=== PATIENT | male | born 2000 | race Caucasian/White ===

== ENCOUNTER 2018-11-11 12:02 | Emergency (ER) | payer MEDICAID ==
[~2018-11-11] VITALS: Ht 165.1 cm; Wt 70.0 kg
[2018-11-11 12:10] VITALS: BP 153/93; PULSE 86; RESP 18; Ht 165.1 cm; Wt 70.0 kg
[2018-11-11] MEDS ORDERED: HYDROCODONE/APAP (5/325) TAB PO ONE (13:00)
[2018-11-11] MEDS ORDERED: HYDR-4011 PO (13:03)
--- NOTE | 2018-11-11 13:13 | ERD ---
ER Documentation Chief Complaint Chief Complaint right upper lip lac HPI This is a 18-year-old male with a nonsignificant past medical history presents ED with complaints of left upper inner lip laceration that occurred just prior to arrival in ED. Patient states that he was at work and was using a drill, the drill got stuck in the wall and when he went to pull it out of the wall the drill struck him in the right upper lip. Patient admits to some mild bleeding coming from the laceration inside his mouth. Admits to some abrasions along upper lip. admits to mild headache that is been gradual in onset not the worst headache of his life. Denies loss of consciousness with this event, blurry v ision, changes in vision, lightheadedness, dizziness, confusion, loose teeth, facial pain, nausea or vomiting postevent and other symptoms. ROS All systems reviewed and are negative except as per history of present illness. Medications Home Meds Active Scripts Hydrocodone/Acetaminophen ([place] 5-325 Tablet) 1 Each Tablet, 1 TAB PO Q6H PRN for PAIN, #7 TAB Prov:JESSI PALOMO PA-C 11/11/18 FmHx Family History: No diabetes Physical Exam Vitals Vital Signs Date Temp Pulse Resp B/P (MAP) Pulse Ox O2 O2 Flow FiO2 Time Delivery Rate 11/11/18 98.7 86 18 153/93 99 12:10 (113) Physical Exam Const: No acute distress Head: Atraumatic, abrasion on patient's right upper lip,, Eyes: Normal Conjunctiva, no periorbital ecchymosis, PERRLA, EOMs intact bilaterally x6 ENT: Normal External Ears, Nose and Mouth. There is a 1 cm laceration on the inside of patient's right upper lip, mild bleeding, no flap or gaping wound, no loose teeth, teeth are nontender to percussion, palpation of maxilla and orbit does not elicit pain, no blood in posterior oropharynx, no hemotympanum, no mastoid tenderness or mastoid ecchymosis Neck: Full range of motion. No meningismus. Resp: Clear to auscultation bilaterally Cardio: Regular rate and rhythm, no murmurs Skin: No petechiae or rashes, abrasion on patient's above right upper lip, no laceration on skin of face Ext: No cyanosis, or edema Neur: Awake and alert Psych: Normal Mood and Affect Results 24 hrs Current Medications Medications Dose Sig/Saad Start Time Status Last (Trade) Ordered Route PRN Stop Time Admin Dose Reason Admin 1 tab ONCE ONCE 11/11/18 DC Acetaminophen PO 13:00 11/11/18 / 13:01 Hydrocodone Bitart ([place] (5/325)) Procedures/MDM PROCEDURES: Wound care provided in ED ER COURSE: The patient was given [place] for pain The medication was well tolerated and the patient reports improvement in symptoms. The patient was stable throughout ED course. I kept the patient and/or family informed of laboratory and diagnostic imaging results throughout the emergency room course. The patient was promptly evaluated and a treatment plan was devised based on H&P and other data. This plan was discussed with the patient who agreed and had no further questions or concerns prior to discharge. MEDICAL DECISION MAKIN-year-old male presents ED with right upper inner lip laceration and facial abrasion after being struck by drill earlier this morning. The lip laceration is not gaping and does not have a flap and does not require sutures. There are some abrasions on patient's face in addition to the lip laceration. Wound care was provided in the ED. I discussed with patient how to care for lip laceration. per the [place] head CT rule it is unnecessary to CT for head trauma. Patient is showing no signs of subarachnoid hemorrhage, intracranial hemorrhage, epidural hematoma, subdural hematoma, midline shift, basilar skull fracture, orbital fracture, facial fracture among others. Patient's vitals are stable and pt can be managed with close out patient follow up. Advised patient to return to ED or to be seen by primary care for a 48 hour wound check. Return to ED with any worsening symptoms and if patient starts experiencing fever, chills, purulent drainage, warmth, swelling at laceration site this may be indications that wound has become infected and patient may need antibiotics. DISPOSITION PLAN: We discussed follow up with the patient's primary care doctor within 24 to 48 hours. Patient counseled regarding my diagnostic impression and care plan. Prior to discharge all questions answered. Pt agrees with treatment plan and understands strict return precautions. Precautionary instructions provided including instructions to return to the ER if not improving or for any worsening or changing symptoms or concerns. SPECIALIST FOLLOW UP RECOMMENDED: None Patient has been advised to follow up with primary care in 1-2 days. Disclaimer: Inadvertent spelling and grammatical errors are likely due to EHR/dictation software use and do not reflect on the overall quality of patient care. Also, please note that the electronic time recorded on this note does not necessarily reflect the actual time of the patient encounter. Blood Pressure Assessment: Patient's blood pressure was elevated (>120/80) but appears stable without evidence of hypertension emergency or urgency. The patient was counseled about the risks of hypertension and urged to pursue outpatient monitoring and therapy within a week with their primary care physician. Departure Diagnosis: Primary Impression: Lip laceration Encounter type: initial encounter Qualified Codes: S01.511A - Laceration without foreign body of lip, initial encounter Additional Impression: Facial abrasion Encounter type: initial encounter Qualified Codes: S00.81XA - Abrasion of other part of head, initial encounter Condition: Stable Patient Instructions: Laceration, Lip/Mouth Ref[facility]: [facility] Usted se escobar hecho un examen mdico de control que le indica que no est en isak condicin que requiera tratamiento urgente en el Departamento de Emergencia. Un estudio ms profundo y el tratamiento de power condicin pueden esperar sin ningn riesgo hasta que usted sea atendida/o en el consultorio de power mdico o isak clnica. Es responsabilidad suya arreglar isak celine para el seguimiento del everardo. MANEJO DE CONDICIONES NO URGENTES EN EL FUTURO 1) Si usted tiene un mdico de atencin primaria: Usted debera llamar a power mdico de atencin primaria antes de venir al dep artamento de emergencia. Despus de las horas de consultorio, power doctor o power asociado/a est disponible por telfono. El mdico o enfermero de love en el servicio telefnico puede asesorarle por camacho medio para atender el problema, o everardo contrario se puede programar isak celine. 2) Si usted no tiene un mdico de atencin primaria: Llame al mdico o clnica de referencia que aparece abajo mary las horas de consultorio para hacer isak celine para que le vean. CLINICAS: [facility] [id number] [facility] [phone] [facility] [phone] [place] [address] [phone] [place] [address] [phone] [facility] [phone] [address] Additional Instructions: Paciente aconseja volver a Departamento de urgencias inmediatamente para sntomas nuevos o que empeoran . Paciente aconseja posteriores con el PCP en 1-2 sy . Paciente verbaliza la comprehensin y est de acuerdo con el tratamiento y el curso de accin. Si el paciente no tiene ninguna de atencin primaria pueden seguir con [facility] [address] [place] [address] o LOCATED WITHIN [facility] + [address] [address] JESSI PALOMO PA-C Nov 11, 2018 13:13
== END 2018-11-11 14:18 | disposition home or self-care (01) ==
LOC: FTE 12:02
DX: S01.511A Laceration without foreign body of lip, initial encounter (principal); W22.8XXA Striking against or struck by other objects, initial encounter; Y92.89 Other specified places as the place of occurrence of the external cause
CPT/HCPCS: Z7502; Z7610; 99283